=== PATIENT | female | born 1930 | race Caucasian/White ===

== ENCOUNTER → 2016-12-15 | Outpatient (CLI) | payer OTHER ==
[~2016-12-15] MED LIST: ASCA500 PO; ASPI81TA28 PO; BRIM0.2S OPB; CLB200 PO; CLTP PO; METO25TA56 PO; MULT-506 PO; ULT50 PO; XRL10 PO
[2016-12-15 09:53] LABS: ALT/SGPT 19 U/L (12-78); AST/SGOT 36 U/L (15-37); BLOOD UREA NITROGEN 12 mg/dl (7-18); BUN/CREATININE RATIO 16.1 (10-20); CALCIUM 8.8 mg/dl (8.5-10.1); CARBON DIOXIDE 29 mmol/L (21-32); CHLORIDE 106 mmol/L (98-107); CREATININE 0.73 mg/dl (0.60-1.20); GLUCOSE 91 mg/dl (70-99); POTASSIUM 3.9 mmol/L (3.5-5.1); SODIUM 142 mmol/L (136-145)
[2016-12-15 09:55] LABS: ALKALINE PHOSPHATASE 69 U/L (45-117); CHOLESTEROL 175 mg/dl (0-200); CHOLESTEROL/HDL RATIO 1.8; HDL CHOLESTEROL 96 mg/dl; LDL CHOLESTEROL CALCULATED 67 mg/dl; TRIGLYCERIDES 61 mg/dl (0-150); VERY LOW DENSITY LIPOPROT CALC 12 mg/dl
[2016-12-15 10:45] LABS: BASO % 0.6 %; BASO ABS # 0.03 K/uL (0-0.2); COMPLETE YES; EOS % 2.1 %; GIANT PLATELETS 1+; HEMATOCRIT 38.3 % (37-47); IG% 0.2 %; LYMPH ABS # 1.31 K/uL (1.2-3.4); MEAN CELL VOLUME 93.2 fL (80-100); MEAN CORPUSCULAR HEMOGLOBIN 31.1 pg (25-34); MEAN CORPUSCULAR HGB CONC 33.4 g/dl (32-36); MEAN PLATELET VOLUME 12.4 fL (7.4-10.4); MONO % 9.2 %; NEUT % 59.9 %; PLATELET COUNT 123 K/uL (130-400); PLT ESTIMATE DECREASED; RED BLOOD COUNT 4.11 M/uL (4.2-5.4); WHITE BLOOD COUNT 4.68 K/uL (4.8-10.8)
== END | disposition home or self-care (01) ==
LOC: C.LAB 08:27
PROVIDERS: ATTEND Internal Medicine
DX: K57.30 Diverticulosis of large intestine without perforation or abscess without bleeding (principal); I10 Essential (primary) hypertension; E78.5 Hyperlipidemia, unspecified

== ENCOUNTER 2019-05-19 11:58 | Observation (INO) ==
--- OUTSIDE RECORDS SUMMARY | 2019-05-19 12:02 | External Medical Summary | Continuity of Care Document ---
:1930 Author Name Paradise Cordova, Provider Address Unavailable Unavailable , Care Team Providers Name Role Phone Tre Cordova, Dhiraj Guaman Unavailable [email or web address] Active medical history not documented Allergies and Adverse Reactions Allergy history not documented Medications Medications not documented Procedures Procedures not documented Immunizations Immunizations not documented Plan of Treatment Planned Observations Planned Goals not documented Results No Known Results Results not documented
[2019-05-19] MEDS ORDERED: ONDANSETRON INJ 2 MG/ML 2 ML VIAL IV STA ×2 (12:24→17:56)
[2019-05-19] MEDS ORDERED: MoRPHine SULFATE 4 MG/ML 1 ML CARP\\VIAL IV STA ×2 (12:24→15:05)
--- NOTE | 2019-05-19 13:08 | XRay Report ---
XR pelvis 1-2V routine CLINICAL HISTORY: pain COMPARISON: 05/18/2014 DISCUSSION: Bilateral total hip arthroplasties. Contact between prosthetic And bone is good.. No evidence of acetabular protrusion. There is no evidence for soft tissue swellin g. IMPRESSION: No acute process The above report was generated using voice recognition software. It may contain grammatical, syntax or spelling errors. Electronically signed by: Adán Neal M.D. 05/19/2019 1:07 PM
[2019-05-19 13:30] LABS: Hematocrit (blood only) 37.1 % (37-47); Hemoglobin 12.5 g/dL (12.0-16.0); Mean Corpuscular Hgb Conc 33.7 g/dL (32-36); Mean Corpuscular Volume 94.4 fL (80-100); Mean Platelet Volume 12.9 fL (7.4-10.4); Platelet Count 106 K/uL (130-400); RDW Coefficient of Variation 14.2 % (11.5-14.5); RDW Standard Deviation 49.1 fL (36.4-46.3); Red Blood Count 3.93 M/uL (4.2-5.4); White Blood Count 8.39 K/uL (4.8-10.8)
--- NOTE | 2019-05-19 13:32 | CT Scan Report ---
CT lumbar spine wo con HISTORY: 88 years-old Female lower back pain acute low back pain without reported trauma COMPARISON: Pelvis radiographs of same day and also 01/16/2011 TECHNIQUE: Multiple axial CT images of the lumbar spine were obtained without the use of IV contrast. A dose lowering technique was used consistent with the principals of ALARA. FINDINGS: Demineralized appearance of the bones. 36 degrees levoscoliosis measured from L2-L5. No acute fractur e or subluxation identified. Moderate disc space narrowing with vacuum disc phenomenon at L5-S1. Mode rate to severe disc space narrowing at L4-L5. Severe disc space narrowing with partial bony fusion at L1-L2. Large posterior disc osteophyte complex relation is also noted at L1-L2. Moderate disc space narrowing at L2-L3 and L3-L4. Moderate to severe multilevel facet arthrosis. Posterior disc osteophyt e complex formations are also noted most prominently at 2-L3, L3-L4 and L4-L5. Evaluation of the cent ral canal and neuroforamina is better assessed by MRI. There is a least mild central canal stenosis a t L1-L2. Multilevel foraminal narrowing. Moderate degenerative changes of the SI joints. No acute fra cture identified about the imaged sacrum or iliac bones. Nonobstructing nephrolithiasis about the inferior pole left kidney measuring up to 4 mm. 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 Calcified plaque of the abdominal aorta. Partially imaged left jessica ng base consolidation with probable trace left pleural effusion. IMPRESSION: 1. No acute fracture or subluxation identified. 2. Demineralized appearance of the bones with levoscoliosis and multilevel degenerative changes as de tailed above. The above report was generated using voice recognition software. It may contain grammatical, syntax o r spelling errors. Electronically signed by: Elvin Alfonso M.D. 05/19/2019 1:31 PM
[2019-05-19 13:43] LABS: Albumin Level 3.5 gm/dl (3.4-5.0); Appearance Urine Clear (Clear); Bilirubin Urine Negative (Negative); Blood Urine Negative (Negative); Calcium 8.8 mg/dl (8.5-10.1); Color Urine Yellow; Creatinine Clr Calc Pharmacy 52.6 ml/min; Est GFR (African American) 89.5; Est GFR (Non-African American) 77.2; Glucose Urine UA Negative (Negative); Ketones Urine Trace (Negative); Leukocyte Esterase Urine Negative (Negative); Nitrite Urine Negative (Negative); Potassium 3.4 mmol/L (3.5-5.1); Protein Urine Negative (Negative); Specific Gravity Urine 1.016 (1.000-1.030); Urobilinogen Urine Negative (Negative)
[2019-05-19 13:46] LABS: Bilirubin,Total 1.1 mg/dl (0.2-1); Globulin 3.4 gm/dl (2.5-4.0); Total Protein 6.9 gm/dl (6.4-8.2)
[2019-05-19 13:47] LABS: INR 1.1 (0.9-1.1); Prothrombin Time 10.9 Seconds (9.0-12.0)
[2019-05-19 14:00] LABS: Basophils # (auto) 0.01 K/uL (0-0.2); Basophils % (auto) 0.1 %; Immature Granulocytes # (auto) 0.02 K/uL (0.00-0.02); Immature Granulocytes % (auto) 0.2 %; Lymphocytes # (auto) 0.93 K/uL (1.2-3.4); Lymphocytes % (auto) 11.1 %; Monocytes # (auto) 1.22 K/uL (0.11-0.59); Monocytes % (auto) 14.5 %; Neutrophils # (auto) 6.21 K/uL (1.4-6.5); Neutrophils % (auto) 74.1 %
--- NOTE | 2019-05-19 17:25 | History & Physical Report ---
Date of Service May 19, 2019 Assessment & Plan (1) Back pain: CT findings as noted with multiple levels of narrowing, osteophyte, and other chronic findings There is a nonobstructing renal stone, but it is on the L WBC WNL Pelvic XR neg for acute, hx of b/l hip and knee surgery with Dr. Dunlap UA neg Morphine, ibuprofen Would like to give decadron, however prednisone is listed as an allergy Pt and daughter do not know what happened specifically, but think it might have been some n/v postop Pharmacy researched and is unable to find when prenisdone was added as an allergy. Pt was given a dose of decadron in 2013 and later refused other doses. It does not indicate why Ortho c/s pending PT/OT pending Pt lives alone, so may need rehab (2) HTN (hypertension): continue home meds (3) Hypokalemia: Replace and monitor (4) DVT prophylaxis: SCDs History of Present Illness Primary Care Provider: Bill Sousa MD 88 y/o F c/o intractable back pain. Pt has hx of minor LBP with overuse, but nothing like the pain she is having currently. Daughter states that they went to a concert at [employer] last night. She states that the chairs were not comfortable and pt was having some increased back pain after the concert. She usually ambulates with a cane and was able to do so. Daughter called pt later in the evening to see how she was doing and pt felt that he pain was worse at that time. This AM, pt was not able to get out of her chair. Daughter attempted to help her but was unable. This has never happened to pt in the past. Pt states that pain is in her R hip but moves across her entire low back. It is no better or worse s/p morphine in the ED. The morphine did make her somewhat nauseated, which she feels is due to having no PO yet today. She is hungry. Pt denies fever, SOB, chest pain, abd pain, v/c/d. She has LE swelling generally and it is at its usual today. She has had no bowel or bladder incontinence. Allergies Allergy/AdvReac Type Severity Reaction Status Date / Time prednisone Allergy Unknown . Verified 05/19/19 12:59 codeine AdvReac Mild UPSET Verified 05/19/19 12:59 STOMACH Sulfa (Sulfonamide AdvReac Unknown Unverified 05/19/19 12:59 Antibiotics) Home Medications Home Medications Medication Instructions Recorded Confirmed Type ascorbic acid (vitamin C) [Vitamin 500 mg PO QAM 05/19/19 05/19/19 History C] aspirin 81 mg PO QAM 05/19/19 05/19/19 History calcium carbonate-vitamin D3 1 tab PO QAM 05/19/19 05/19/19 History [Caltrate 600 + D] latanoprost 1 drp OPB HS 05/19/19 05/19/19 History metoprolol tartrate 25 mg PO QAM 05/19/19 05/19/19 History [id number] K 1 tab-cap PO QAM 05/19/19 05/19/19 History [Multi For Her] timolol maleate 1 drp OPB QAM 05/19/19 05/19/19 History Past Med/Surg History Medical History Glaucoma Surgical History H/O bilateral hip replacements H/O right mastectomy Family History Mother Stroke Brother Myocardial infarction Other Family history non-contributory Social History Preferred Language: Danish Communication Ability: Effective Behavioral Interventionist Required: No Beliefs That Will Affect Care: None marital status: / Current Living Situation: Alone Current Living Situation Comment: own condo [place] current occupational status: retired Other Information That Helps Us Care for You: No Feels Safe at Home: Yes Safety Concerns: Feels Safe At This Time Smoking Status: Never smoker Do You Dip or Chew Tobacco: No Hx Alcohol Use: No Hx Substance Use: No Review of Systems Review of Systems: Pertinent positives and negatives reviewed in HPI--all others negative Physical Exam Constitutional: WD/WN, vitals as above Eyes: normal visual carter by confrontation and + anicteric sclerae Neck: normal visual inspection and trachea midline Respiratory: normal respiratory effort, lungs clear to auscultation Cardiovascular: Rate/Rhythm: regular rate and regular rhythm Gastrointestinal (Abdomen): Inspection/Auscultation: abdomen not distended Percussion/Palpation: abdomen soft; abdomen nontender Musculoskeletal: Head/Neck/Chest: normocephalic and head atraumatic b/l LE 1+ pitting edema, peripheral pulses intact Skin: no rashes, warm and dry Neurologic: awake; not confused Speech / Cognition: normal speech Psychiatric: A+Ox3, euthymic affect Results & Data Vital Signs (Past 12 Hours) Vital Signs Temp Pulse Resp BP Pulse Ox 05/19/19 15:01 94 H 18 147/99 H 05/19/19 15:00 94 H 16 05/19/19 14:01 94 H 17 147/77 H 05/19/19 14:00 95 H 17 05/19/19 13:36 94 H 19 05/19/19 13:35 93 H 15 151/78 H 05/19/19 13:29 94 H 19 05/19/19 13:21 98 H 20 98 05/19/19 12:07 36.6 C 95 H 23 152/85 H [address] L-spine: Demineralized appearance of the bones. 36 degrees levoscoliosis measured from L2-L5. No acute fracture or subluxation identified. Moderate disc space narrowing with vacuum disc phenomenon at L5-S1. Moderate to severe disc space narrowing at L4-L5. Severe disc space narrowing with partial bony fusion at L1-L2. Large posterior disc osteophyte complex relation is also noted at L1- L2. Moderate disc space narrowing at L2-L3 and L3-L4. Moderate to severe multilevel facet arthrosis. Posterior disc osteophyte complex formations are also noted most prominently at 2-L3, L3-L4 and L4-L5. Evaluation of the central canal and neuroforamina is better assessed by MRI. There is a least mild central canal stenosis at L1-L2. Multilevel foraminal narrowing. Moderate degenerative changes of the SI joints. No acute fracture identified about the imaged sacrum or iliac bones. Nonobstructing nephrolithiasis about the inferior pole left kidney measuring up to 4 mm. 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 Calcified plaque of the abdominal aorta. Partially imaged left lung base consolidation with probable trace left pleural effusion. IMPRESSION: 1. No acute fracture or subluxation identified. 2. Demineralized appearance of the bones with levoscoliosis and multilevel degenerative changes as detailed above. Pelvic XR: neg Code Status & VTE Plan Code Status Full code VTE Prophylaxis Plan VTE Prophylaxis will be ordered: Yes PG Care Time/CCT Total # of Minutes Spent Total Time Spent with Patient: Total time spent is greater than 50% in coordination of care (as documented) at patient's floor/unit and/or counseling patient: (1) Back pain Back pain laterality: unspecified Back pain location: back pain in unspecified location Chronicity: unspecified Qualified Code(s): M54.9 - Dorsalgia, unspecified
[2019-05-19] MEDS ORDERED: ONDANSETRON INJ 2 MG/ML 2 ML VIAL ONE (17:53)
[2019-05-19] MEDS ORDERED: ACETAMINOPHEN 325 MG TAB PO PRN (18:40)
[2019-05-19] MEDS ORDERED: MAGNESIUM HYDROXIDE SUSP 30 ML UDC PO PRN (18:40)
[2019-05-19] MEDS ORDERED: ONDANSETRON INJ 2 MG/ML 2 ML VIAL IV PRN (18:40)
[2019-05-19] MEDS ORDERED: MoRPHine SULFATE 2 MG/ML CARP IV PRN (18:40)
[2019-05-19] MEDS ORDERED: POTASSIUM CHLORIDE 20 MEQ TABCR PO STA (18:40)
--- NOTE | 2019-05-19 18:56 | Emergency Department Note ---
Entered by Chetna Tamayo acting as a scribe for History of Present Illness General Chief complaint: Hip Pain Time Seen by Provider: 05/19/19 12:00 Source: patient History of Present Illness Onset (ago): day(s) (last night) Location: hip (bilateral) Pain Consistency: + other (persistent) Maximum Pain Intensity: 8 Quality: + dull Exacerbated By: + movement Associated symptoms: + denies other symptoms (urinary symptoms, abnormal bowel movements, numbness, rhinorrhea) and + nausea/vomiting (nausea); no chest pain, no cough and no weakness The patient is an 88 year old female who presents to the ED with complaints of persistent hip pain starting last night. The patient states that yesterday she had a normal day. She states that she went to buddhism and later sat out in a lawn chair and watched a show. She reports that otherwise, it was a normal day for her. The patient states that in the middle of the night she started having hip pain that radiated across her back from one hip to the other. She states that it was so bad that she was unable to move out of bed. She reports that in the middle of the night she was able to finally maneuver herself into the chair nearby. She states that once there she was unable to get back to bed and had to have her daughter help. The patient states that this morning she went to get up for breakfast and still couldnt move. She reports that when her daughter finally got her up she was nauseous. She reports that because of the pain she has not eaten, moved her bowels yet today, or urinated today. She notes that prior to this she was moving her bowels normally and denies having any urinary symptoms. The patient notes that the pain is dull and worse with movement. The patient notes that she takes a low dose of Aspirin. The patient denies weakness in her legs, numbness in her legs, cough, rhinorrhea, and chest pain. Home Medications Home Medications Medication Instructions Recorded Confirmed Type ascorbic acid (vitamin C) [Vitamin 500 mg PO QAM 05/19/19 05/19/19 History C] aspirin 81 mg PO QAM 05/19/19 05/19/19 History calcium carbonate-vitamin D3 1 tab PO QAM 05/19/19 05/19/19 History [Caltrate 600 + D] latanoprost 1 drp OPB HS 05/19/19 05/19/19 History metoprolol tartrate 25 mg PO QAM 05/19/19 05/19/19 History nejzjavvtiwa-qrg-amrt-FA-vit K 1 tab-cap PO QAM 05/19/19 05/19/19 History [Multi For Her] timolol maleate 1 drp OPB QAM 05/19/19 05/19/19 History Allergies Allergy/AdvReac Type Severity Reaction Status Date / Time prednisone Allergy Unknown . Verified 05/19/19 12:59 codeine AdvReac Mild UPSET Verified 05/19/19 12:59 STOMACH Sulfa (Sulfonamide AdvReac Unknown Unverified 05/19/19 12:59 Antibiotics) Past Med/Surg History Medical History Glaucoma Surgical History H/O bilateral hip replacements H/O right mastectomy Family History Mother Stroke Brother Myocardial infarction Other Family history non-contributory Social History Preferred Language: Senegalese Communication Ability: Effective Beliefs That Will Affect Care: None marital status: / Current Living Situation: Alone Current Living Situation Comment[place] current occupational status: retired Feels Safe at Home: Yes Smoking Status: Never smoker Hx Alcohol Use: No Hx Substance Use: No Review of Systems See HPI for pertinent positives & negatives. and A total of 10 systems reviewed and were otherwise negative Physical Exam Vital Signs Vital Signs - 24 hr 05/19/19 12:07 05/19/19 13:21 05/19/19 13:29 Temperature 36.6 C Temperature Source Oral Sepsis Recent Fever Within 48 Hours No Sepsis New/Unexplained Change in Mental Status No Sepsis Action Taken by Nursing No Action Required Pulse Rate 95 H 98 H 94 H Pulse Rhythm Regular Pulse Strength Normal Respiratory Rate 23 20 19 Respiratory Effort / Characteristics Non-Labored Spontaneous Respiratory Depth Normal Respiratory Pattern Regular Blood Pressure 152/85 H Blood Pressure Mean 107 Blood Pressure Position Sitting Pulse Oximetry 98 98 Oxygen Delivery Method Room Air Room Air 05/19/19 13:35 05/19/19 13:36 05/19/19 14:00 Temperature Temperature Source Sepsis Recent Fever Within 48 Hours Sepsis New/Unexplained Change in Mental Status Sepsis Action Taken by Nursing Pulse Rate 93 H 94 H 95 H Pulse Rhythm Pulse Strength Respiratory Rate 15 19 17 Respiratory Effort / Characteristics Respiratory Depth Respiratory Pattern Blood Pressure 151/78 H Blood Pressure Mean 102 Blood Pressure Position Pulse Oximetry Oxygen Delivery Method 05/19/19 14:01 05/19/19 15:00 05/19/19 15:01 Temperature Temperature Source Sepsis Recent Fever Within 48 Hours Sepsis New/Unexplained Change in Mental Status Sepsis Action Taken by Nursing Pulse Rate 94 H 94 H 94 H Pulse Rhythm Pulse Strength Respiratory Rate 17 16 18 Respiratory Effort / Characteristics Respiratory Depth Respiratory Pattern Blood Pressure 147/77 H 147/99 H Blood Pressure Mean 100 115 Blood Pressure Position Pulse Oximetry Oxygen Delivery Method 05/19/19 15:02 05/19/19 16:00 05/19/19 16:01 Temperature Temperature Source Sepsis Recent Fever Within 48 Hours Sepsis New/Unexplained Change in Mental Status Sepsis Action Taken by Nursing Pulse Rate 94 H 89 89 Pulse Rhythm Pulse Strength Respiratory Rate 28 H 17 17 Respiratory Effort / Characteristics Respiratory Depth Respiratory Pattern Blood Pressure 128/71 Blood Pressure Mean 90 Blood Pressure Position Pulse Oximetry Oxygen Delivery Method GENERAL: sitting up in bed, uncomfortable with movements, nontoxic, no acute distress EYE EXAM: normal conjunctiva OROPHARYNX: no exudate, no erythema, lips, buccal mucosa, and tongue normal and mucous membranes are moist NECK: supple, no nuchal rigidity, no adenopathy, non-tender LUNGS: Clear to auscultation. Normal chest wall mechanics HEART: soft ejection murmur, S1 normal and S2 normal ABDOMEN: abdomen soft, non-tender, normo-active bowel sounds, no masses, no rebo und or guarding. BACK: Back is symmetrical on inspection and there is no deformity, no midline tenderness, no CVA tenderness. Tenderness in the mid lumbar bilateral paraspinal tracking down through bilateral gluteus. SKIN: no rashes and no bruising UPPER EXTREMITIES: upper extremities are grossly normal. LOWER EXTREMITIES: Flexion and extension of the knees, ankles, and EHL 5/5 bilaterally. Gross sensation is intact. DPs are 2/4 bilateral. Significant pain with flexion of bilateral hips. Pitting edema. NEURO EXAM: Normal sensorium, cranial nerves II-XII grossly intact, normal speech, no gross weakness of arms, no gross weakness of legs but significant pain with flexion in the hips Course ED COURSE: Vital signs were reviewed and showed situational hypertension. The patients medical record was reviewed The above diagnostic studies were performed and reviewed. ED treatments and interventions as stated above. 1214: The patient was evaluated in room C7. A complete history and physical examination was performed. 1504: I reevaluated the patient and she still can't move. 1541: Upon reevaluation, the patient is still unable to sit up.I discussed my findings with the patient and she understands and agrees with the treatment plan. Based on the patients age, coexisting illnesses, exam and lab findings the decision to treat as an inpatient was made. The patient remained stable while under my care. The patient will be evaluated for further management. 1554: I discussed the patient's case with Dr. Javan DOZIER Hospitalist. She will evaluate the patient for further management. Consultations Consultation #1: I discussed the patient's case with Dr. Javan DOZIER Hospitalist. She will evaluate the patient for further management. Time: 15:54 Administered Medications Discontinued Medications Morphine Sulfate (Morphine Sulfate) 4 mg IV NOW STA Stop: 05/19/19 12:25 Last Admin: 05/19/19 13:19 Dose: 4 mg Documented by: [id number] Morphine Sulfate (Morphine Sulfate) 4 mg IV NOW STA Stop: 05/19/19 15:06 Last Admin: 05/19/19 15:24 Dose: 4 mg Documented by: [id number] Ondansetron HCl (Zofran) 4 mg IV NOW STA Stop: 05/19/19 12:25 Last Admin: 05/19/19 13:20 Dose: 4 mg Documented by: [id number] Ondansetron HCl (Zofran) Confirm Administered Dose 4 mg .ROUTE .STK-MED ONE Stop: 05/19/19 17:54 Last Admin: 05/19/19 17:56 Dose: 4 mg Documented by: [id number] Ondansetron HCl (Zofran) 4 mg IV NOW STA Stop: 05/19/19 17:57 Last Admin: 05/19/19 18:05 Dose: Not Given Documented by: [id number] Medical Decision Making Differential Diagnosis Etiologies such as fracture, dislocation, neurovascular compromise, compartment syndrome, soft tissue injury, as well as others were entertained. Medical Records Attestation: I reviewed the patient's medical records. Home Medications Current Medication List: was personally reviewed by me Laboratory Data Attestation: I reviewed the patient's lab results. Result diagrams: 05/19/19 13:14 05/19/19 13:14 Lab Results 05/19/19 05/19/19 05/19/19 Range/Units 13:14 13:14 13:14 WBC 8.39 (4.8-10.8) K/uL RBC 3.93 L (4.2-5.4) M/uL Hgb 12.5 (12.0-16.0) g/dL Hct 37.1 (37-47) % MCV 94.4 (80-100) fL MCH 31.8 (25-34) pg MCHC 33.7 (32-36) g/dL RDW Std Deviation 49.1 H (36.4-46.3) fL RDW Coeff of Jozef 14.2 (11.5-14.5) % Plt Count 106 L (130-400) K/uL MPV 12.9 H (7.4-10.4) fL Immature Gran % (Auto) 0.2 % Neut % (Auto) 74.1 % Lymph % (Auto) 11.1 % Dundy % (Auto) 14.5 % Eos % (Auto) 0.0 % Baso % (Auto) 0.1 % Immature Gran # (Auto) 0.02 (0.00-0.02) K/uL Neut # (Auto) 6.21 (1.4-6.5) K/uL Lymph # (Auto) 0.93 L (1.2-3.4) K/uL Dundy # (Auto) 1.22 H (0.11-0.59) K/uL Eos # (Auto) 0.00 (0-0.5) K/uL Baso # (Auto) 0.01 (0-0.2) K/uL PT 10.9 (9.0-12.0) Seconds INR 1.1 (0.9-1.1) Sodium 139 (136-145) mmol/L Potassium 3.4 L (3.5-5.1) mmol/L Chloride 104 (98-107) mmol/L Carbon Dioxide 28 (21-32) mmol/L Anion Gap 7.0 (3-11) BUN 15 (7-18) mg/dl Creatinine 0.69 (0.6-1.2) mg/dl Est Cr Clr Drug Dosing 52.6 ml/min Est GFR ( Amer) 89.5 Est GFR (Non-Af Amer) 77.2 BUN/Creatinine Ratio 21.0 H (10-20) Glucose 117 H (70-99) mg/dl Calcium 8.8 (8.5-10.1) mg/dl Total Bilirubin 1.1 H (0.2-1) mg/dl AST 43 H (15-37) U/L ALT 20 (12-78) U/L Alkaline Phosphatase 72 (45-117) U/L Total Protein 6.9 (6.4-8.2) gm/dl Albumin 3.5 (3.4-5.0) gm/dl Globulin 3.4 (2.5-4.0) gm/dl Albumin/Globulin Ratio 1.0 (0.9-2) Lipase 69 L (73-393) U/L Urine Color Urine Appearance (Clear) Urine pH (4.5-7.5) Ur Specific [place] (1.000-1.030) Urine Protein (Negative) Urine Glucose (UA) (Negative) Urine Ketones (Negative) Urine Blood (Negative) Urine Nitrite (Negative) Urine Bilirubin (Negative) Urine Urobilinogen (Negative) Ur Leukocyte Esterase (Negative) 05/19/19 Range/Units 13:14 WBC (4.8-10.8) K/uL RBC (4.2-5.4) M/uL Hgb (12.0-16.0) g/dL Hct (37-47) % MCV (80-100) fL MCH (25-34) pg MCHC (32-36) g/dL RDW Std Deviation (36.4-46.3) fL RDW Coeff of Jozef (11.5-14.5) % Plt Count (130-400) K/uL MPV (7.4-10.4) fL Immature Gran % (Auto) % Neut % (Auto) % Lymph % (Auto) % [place] % (Auto) % Eos % (Auto) % Baso % (Auto) % Immature Gran # (Auto) (0.00-0.02) K/uL Neut # (Auto) (1.4-6.5) K/uL Lymph # (Auto) (1.2-3.4) K/uL [place] # (Auto) (0.11-0.59) K/uL Eos # (Auto) (0-0.5) K/uL Baso # (Auto) (0-0.2) K/uL PT (9.0-12.0) Seconds INR (0.9-1.1) Sodium (136-145) mmol/L Potassium (3.5-5.1) mmol/L Chloride (98-107) mmol/L Carbon Dioxide (21-32) mmol/L Anion Gap (3-11) BUN (7-18) mg/dl Creatinine (0.6-1.2) mg/dl Est Cr Clr Drug Dosing ml/min Est GFR ( Amer) Est GFR (Non-Af Amer) BUN/Creatinine Ratio (10-20) Glucose (70-99) mg/dl Calcium (8.5-10.1) mg/dl Total Bilirubin (0.2-1) mg/dl AST (15-37) U/L ALT (12-78) U/L Alkaline Phosphatase (45-117) U/L Total Protein (6.4-8.2) gm/dl Albumin (3.4-5.0) gm/dl Globulin (2.5-4.0) gm/dl Albumin/Globulin Ratio (0.9-2) Lipase (73-393) U/L Urine Color Yellow Urine Appearance Clear (Clear) Urine pH 7.0 (4.5-7.5) Ur Specific [place] 1.016 (1.000-1.030) Urine Protein Negative (Negative) Urine Glucose (UA) Negative (Negative) Urine Ketones Trace H (Negative) Urine Blood Negative (Negative) Urine Nitrite Negative (Negative) Urine Bilirubin Negative (Negative) Urine Urobilinogen Negative (Negative) Ur Leukocyte Esterase Negative (Negative) Imaging Data Radiologist's Impression: Radiology results as stated below per my review and the radiologist's interpretation: XR pelvis 1-2V routine CLINICAL HISTORY: pain COMPARISON: 05/18/2014 DISCUSSION: Bilateral total hip arthroplasties. Contact between prosthetic And bone is good.. No evidence of acetabular protrusion. There is no evidence for soft tissue swelling. IMPRESSION: No acute process The above report was generated using voice recognition software. It may contain grammatical, syntax or spelling errors. Electronically signed by: Adán Neal M.D. 05/19/2019 1:[address] lumbar spine wo con HISTORY: 88 years-old Female lower back pain acute low back pain without reported trauma COMPARISON: Pelvis radiographs of same day and also 01/16/2011 TECHNIQUE: Multiple axial CT images of the lumbar spine were obtained without th e use of IV contrast. A dose lowering technique was used consistent with the principals of ALARA. FINDINGS: Demineralized appearance of the bones. 36 degrees levoscoliosis measured from L2-L5. No acute fracture or subluxation identified. Moderate disc space narrowing with vacuum disc phenomenon at L5-S1. Moderate to severe disc space narrowing at L4-L5. Severe disc space narrowing with partial bony fusion at L1- L2. Large posterior disc osteophyte complex relation is also noted at L1-L2. Moderate disc space narrowing at L2-L3 and L3-L4. Moderate to severe multilevel facet arthrosis. Posterior disc osteophyte complex formations are also noted most prominently at 2-L3, L3-L4 and L4-L5. Evaluation of the central canal and neuroforamina is better assessed by MRI. There is a least mild central canal stenosis at L1-L2. Multilevel foraminal narrowing. Moderate degenerative changes of the SI joints. No acute fracture identified about the imaged sacrum or iliac bones. Nonobstructing nephrolithiasis about the inferior pole left kidney measuring up to 4 mm. 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 Calcified plaque of the abdominal aorta. Partially imaged left lung base consolidation with probable trace left pleural effusion. IMPRESSION: 1. No acute fracture or subluxation identified. 2. Demineralized appearance of the bones with levoscoliosis and multilevel degenerative changes as detailed above. The above report was generated using voice recognition software. It may contain grammatical, syntax or spelling errors. Electronically signed by: Elvin Alfonso M.D. 05/19/2019 1:31 PM Blood Pressure Blood Pressure Findings: Elevated blood pressure Blood Pressure Disposition: further management by hospitalist CHARLES Capoen Patient is an 88-year-old female who presents the ER for lower back pain radiating into her bilateral hips. She denies any weakness numbness and she is able to move her bowels and urinate without difficulty. No signs of cauda equina. She does have bilateral knee replacements and reflexes were difficult to obtain. No focal deficit. CT of the lumbar spine shows DJD. Labs show no significant leukocytosis or anemia. Mild thrombocytopenia at 100. BMP with mild hypokalemia. LFTs bilirubin and lipase was unremarkable. UA was negative. X-rays of the hips were unremarkable. Patient was updated bedside. Was given 2 dose of IV morphine and Zofran. She is updated bedside and as she cannot sit up in bed without significant pain was admitted for pain control. Impression & Plan Back pain Discharge Plan Visit Data *Final* Discharge Date/Time: 05/19/19 18:03 Chief Complaint: Hip Pain Other Complaint: Back Injury/Pain ED Provider: Kai Denis Discharge Problem: Back pain Patient Disposition: Admitted As Inpatient Discharge Instructions Interventions: ED Discharge Assessment Last Done: 05/19/19 18:03 Discharge Problem: Back pain Qualifiers: Back pain location: back pain in unspecified location Chronicity: unspecified Back pain laterality: unspecified Qualified Code(s): M54.9 - Dorsalgia, unspecified The scribe's documentation has been prepared under my direction and personally reviewed by me in its entirety. I confirm that the note above accurately refle cts all work, treatment, procedures, and medical decision making performed by me.
[2019-05-19] MEDS: IBUPROFEN 600 MG TAB PO SCH ×2 (20:30→20:55)
[2019-05-19] MEDS ORDERED: LATANOPROST 0.005% OP SOLN 2.5 ML BTL OPB SCH (21:00)
[2019-05-20] MEDS: IBUPROFEN 600 MG TAB PO SCH ×2 (05:04→14:02)
[2019-05-20 06:58] LABS: BUN Creatinine Ratio 20.9 (10-20); Calcium 8.6 mg/dl (8.5-10.1); Creatinine Clr Calc Pharmacy 63.6 ml/min; Est GFR (African American) 95.3; Est GFR (Non-African American) 82.2; Potassium 3.6 mmol/L (3.5-5.1)
[2019-05-20] MEDS ORDERED: ASPIRIN 81 MG ECTAB PO SCH (09:00)
[2019-05-20] MEDS ORDERED: TIMOLOL MALEATE 0.25% OP SOLN 5 ML BTL OPB SCH (09:00)
[2019-05-20] MEDS ORDERED: CALCIUM 600MG + VIT D 400 IU TAB PO SCH (09:00)
[2019-05-20] MEDS ORDERED: ASCORBIC ACID 500 MG TAB PO SCH (09:00)
[2019-05-20] MEDS ORDERED: CEROVITE ADV FORMULA TAB PO SCH (09:00)
[2019-05-20] MEDS ORDERED: METOPROLOL TARTRATE 25 MG TAB PO SCH (09:00)
--- NOTE | 2019-05-20 13:03 | Discharge Summary ---
Date of Service May 20, 2019 Admission HPI Per Admitting Provider 88 y/o F c/o intractable back pain. Pt has hx of minor LBP with overuse, but nothing like the pain she is having currently. Daughter states that they went to a concert at [place] last night. She states that the chairs were not comfortable and pt was having some increased back pain after the concert. She usually ambulates with a cane and was able to do so. Daughter called pt later in the evening to see how she was doing and pt felt that he pain was worse at that time. This AM, pt was not able to get out of her chair. Daughter attempted to help her but was unable. This has never happened to pt in the past. Pt states that pain is in her R hip but moves across her entire low back. It is no better or worse s/p morphine in the ED. The morphine did make her somewhat nauseated, which she feels is due to having no PO yet today. She is hungry. Pt denies fever, SOB, chest pain, abd pain, v/c/d. She has LE swelling generally and it is at its usual today. She has had no bowel or bladder incontinence. Principal Diagnosis Acute lower back pain Discharge Exam Constitutional WD/WN, vitals as above Eyes PERRL, conjunctivae normal, anicteric sclerae ENMT external ear and nose normal, oropharynx normal Neck trachea midline, no thyromegaly Respiratory normal respiratory effort, lungs clear to auscultation Cardiovascular RRR, no murmur, no edema Gastrointestinal (Abdomen) normal bowel sounds, soft, nontender, no hepatosplenomegaly Musculoskeletal Extremities: extremities normal to inspection; no cyanosis and no clubbing No tenderness to palpation over lumbar spine or buttocks Skin no rashes, warm and dry Neurologic moves all extremities and awake; no focal motor deficits (5/5 strength throughout lower extremities, sensation intact to light touch, DTRs 1+ throughout lower extremities) Psychiatric A+Ox3, euthymic affect Discharge Data Allergies Allergy/AdvReac Type Severity Reaction Status Date / Time prednisone Allergy Unknown . Verified 05/19/19 12:59 codeine AdvReac Mild UPSET Verified 05/19/19 12:59 STOMACH Sulfa (Sulfonamide AdvReac Unknown Unverified 05/19/19 12:59 Antibiotics) Consultations None Ordered Studies 05/19/19 12:24 CT lumbar spine wo con Stat Pelvis x-ray Hospital Course (1) Back pain: CT findings as noted with multiple levels of narrowing, osteophyte, and other chronic findings There is a nonobstructing renal stone, but it is on the L WBC WNL Pelvic XR neg for acute, hx of b/l hip and knee surgery with Dr. Dunlap UA neg Morphine, ibuprofen were provided and she had significant relief of her pain There are no focal neurological deficits and she is able to ambulate, no bowel or bladder incontinence or signs of cauda equina. She does not need a surgical orthopedic consult Focus on physical therapy, stretching, pain management Stable for discharge to rehab Follow-up with orthopedic surgery if not improving (2) HTN (hypertension): continue home meds (3) Hypokalemia: Replaced and resolved (4) Thrombocytopenia: Mild at 106, no evidence of bleeding Chronic and stable in the low 100s for several years at least -Follow as an outpatient All other cell lines and the complete blood count are within normal limits (5) DVT prophylaxis: SCDs Total Time Total Time Spent Total Time Spent (In Minutes): Greater than 30 minutes Total Time Includes: Examination of the Patient, Discharge Planning and Medication Reconciliation Discharge Plan Discharge Items Patient Disposition: Transfer Inpatient Rehab Fac Reason For Visit: INABILITY TO AMBULATE Discharge Diagnosis: Lower back pain, lumbar degenerative disease Discharge Goals: Decrease discomfort, Diagnostic testing, Improve disease control, Increase independence, Learn about illness and Therapeutic intervention Activity: As commented below Lifting: None Bathing: No limitations Exercise/Sports: Gradually increase as tolerated Non-emergency contact: Primary Care Provider Call non-emergency contact if: you have any medication questions, your symptoms worsen, your pain is not controlled, your pain is worsening, your pain is unusual for you, your pain is concerning for you and your temperature is above 100.5 Follow-up/Referrals: Bill Sousa MD [Primary Care Provider] - Diet: Heart Healthy Addtl Provider Instructions: You were admitted with intractable lower back pain which is secondary to scoliosis and severe arthritis. This improved with taking ibuprofen, but it is recommended that you go to rehab for a short stay to improve your level of function prior to returning home. You can continue to take ibuprofen as needed for pain. You should also take Protonix once daily as an antacid ONLY while taking the ibuprofen to reduce your risk of getting an ulcer in the stomach from ibuprofen. Prescriptions: New acetaminophen [Mapap (acetaminophen)] 325 mg Tablet 650 mg PO Q4H PRN (Reason: pain) Qty: 30 RF: 0 ibuprofen 600 mg Tablet 600 mg PO Q8 PRN (Reason: back pain) Qty: 30 RF: 0 pantoprazole [Protonix] 40 mg tablet,delayed release (DR/EC) 40 mg PO DAILY Qty: 14 RF: 0 Continued latanoprost 0.005 % drops 1 drp OPB HS RF: 0 aspirin 81 mg Tablet,Delayed Release (Dr/Ec) 81 mg PO QAM RF: 0 ascorbic acid (vitamin C) [Vitamin C] 500 mg Tablet 500 mg PO QAM RF: 0 timolol maleate 0.5 % drops 1 drp OPB QAM RF: 0 metoprolol tartrate 25 mg tablet 25 mg PO QAM RF: 0 Multi For Her 18 mg iron-600 mcg-40 mcg Capsule 1 tab-cap PO QAM RF: 0 Caltrate 600 + D 600 mg (1,500 mg)-800 unit Tablet,Chewable 1 tab PO QAM RF: 0 Stand-Alone Forms: [facility] Discharge Orders: Discharge Order (Routine); Ordered 05/20/19 Ordered By: Shilpa Cisneros Skilled Items Patient informed of condition?: Yes DNR: No Discharge Level of Care: Acute rehab Communicable Disease: No Discharge Prognosis: Improving Admission Data Admit Date/Time: 05/19/19 16:56 Attending Provider: Shilpa Cisneros Admit Provider: Sherine Triana Primary Care Provider: Bill Sousa Other Providers: Sherine Triana Service: Medical Other Interventions: Discharge Summary Assessment (RN) Last Done: 05/20/19 13:53 Pending Studies at Discharge: No DC Date/Time DO NOT enter until pt leaves facility: 05/20/19 17:21
== END 2019-05-20 17:21 ==
LOC: 2W 11:58 → ED 11:58 → SUATTDRO 16:56 → 2W 18:03